=== PATIENT | male | born 1995 | race Caucasian/White ===

== ENCOUNTER 2018-01-28 10:23 | Emergency (ER) | payer SELFPAY ==
[2018-01-28 10:33] VITALS: BP 141/88
--- NOTE | 2018-01-28 11:05 | ER Document Report ---
ED Medical Screen (RME) - General Chief Complaint: Chest Pain Stated Complaint: CHEST PAIN Time Seen by Provider: 01/28/18 11:01 Mode of Arrival: Ambulatory Information source: Patient Notes: This is a 22-year-old man with history of depression and dyslipidemia who presents to the emergency with feelings of anxiousness, headaches, chest pain, sweaty palms. Patient is originally from [place] and moved here with his girlfriend. He states that he is always been anxious and states it has been worse lately. He does smoke cigarettes (1 pack a day) and he does drink up to 12 Mountain Dew's a day. Medications: Medicine for dyslipidemia. He does state he was on an antidepressant for 1 week and took himself off after leaving [place]. Social: Cigarettes 1 pack per day Mountain Dew: At least 12 a day Family history: 2 brothers, 2 sisters: Good health. No early coronary artery disease or early CVA. No VTE. Patient does state that he plans on moving back to [place] in 1 month with his girlfriend. He has not seen a primary care doctor since coming to this area. TRAVEL OUTSIDE OF THE U[place] IN LAST 30 DAYS: No - HPI Onset: Last week Onset/Duration: Gradual Quality of pain: Sharp Severity: Moderate Pain Level: 2 Associated Symptoms: Chest pain, Dizzy/lightheaded, Weakness - Then realized. denies: Nausea, Shortness of breath Exacerbated by: Denies Relieved by: Denies Similar symptoms previously: Yes Recently seen / treated by doctor: Yes - Related Data Smoking: Cigarettes Frequency of alcohol use: None Drug Abuse: None Allergies/Adverse Reactions: No Known Allergies Allergy (Verified 01/28/18 10:24) Past Medical History - General Information source: Patient - Social History Cigarette use (# per day): Yes - 1 pack per day Chew tobacco use (# tins/day): No Frequency of alcohol use: None Drug Abuse: None Lives with: Spouse/Significant other Family history: None - Past Medical History Cardiac Medical History: Reports: Hx Hypercholesterolemia Renal/ Medical History: Denies: Hx Peritoneal Dialysis Psychiatric Medical History: Reports: Hx Depression Surgical Hx: Negative Review of Systems - Review of Systems Constitutional: denies: Chills, Fever EENT: No symptoms reported Cardiovascular: Lightheaded Respiratory: denies: Short of breath, Wheezing Gastrointestinal: No symptoms reported Genitourinary: No symptoms reported Male Genitourinary: No symptoms reported Musculoskeletal: No symptoms reported Skin: No symptoms reported Hematologic/Lymphatic: No symptoms reported Neurological/Psychological: Headaches - Patient has a long history of headaches. No significant change Physical Exam - Vital signs Vitals: Temp Pulse Resp BP Pulse Ox 98.0 F 101 H 20 141/88 H 98 01/28/18 10:31 01/28/18 10:31 01/28/18 10:31 01/28/18 10:31 01/28/18 10:31 Notes: Physical exam: GENERAL: A 22-year-old man, alert and oriented 3, no acute distress. HEAD: Atraumatic, normocephalic. EYES: Pupils equal round and reactive to light, extraocular movements intact, sclera anicteric, conjunctiva are normal. ENT: TMs normal, nares patent, oropharynx clear without exudates. No neck adenopathy. Moist mucous membranes. NECK: Normal range of motion, supple without obvious mass or JVD. LUNGS: Breath sounds clear to auscultation bilaterally and equal. No wheezes rales or rhonchi. HEART: Regular rate and rhythm without murmurs, rubs or gallops. ABDOMEN: Soft, normoactive bowel sounds. No tenderness to palpation. No guarding, no rebound. No masses appreciated. EXTREMITIES: Normal range of motion, no pitting or edema. No clubbing or cyanosis. NEUROLOGICAL: Cranial nerves II through XII grossly intact. Normal speech, motor 5/5, sensory grossly intact, cerebellar (finger to nose) excellent, reflexes are symmetrical, Romberg negative. Patient's gait is normal. PSYCH: Normal mood, normal affect. SKIN: Warm, Dry, normal turgor, no rashes or lesions noted. Course - Re-evaluation Re-evalutation: 01/28/18 11:11 I had a long conversation with the patient. Ultimately, I think his caffeine intake and nicotine intake are contributing to feelings of anxiousness and lightheadedness. He reports not drinking much fluid at all. I have strongly encouraged him to cut down on the smoking and to slowly cut down on the caffeine intake and to drink more fluids. I have referred him to the [facility] and encouraged him to make an appointment on Tuesday. He thinks he is only going to be in the area for 1 more month but I have advised him to schedule the appointment just in case he is in the area longer. Additionally, if he is leaving at the end of the month, I have advised him to follow-up with a primary care doctor when back in [place] as soon as he gets home. He has requested antianxiety medicines. I am hesitant to start him on an antidepressant given the fact that he was noncompliant with the antidepressant his last doctor had him on. I have discussed with him the problems with medicines like benzodiazepine for the abuse potential so we have held off on those medicines. - Vital Signs Vital signs: Temp Pulse Resp BP Pulse Ox 98.0 F 101 H 20 141/88 H 98 01/28/18 10:31 01/28/18 10:31 01/28/18 10:31 01/28/18 10:31 01/28/18 10:31 - EKG Interpretation by Me Rate: Normal Rhythm: NSR - EKG shows sinus tachycardia with a ventricular rate of 101, no acute ST-T wave changes Doctor's Discharge - Discharge Clinical Impression: Chest wall pain Condition: Stable Disposition: HOME, SELF-CARE Instructions: Chest Wall Pain ([facility]) Additional Instructions: As we discussed, I would like you to start cutting down on his smoking. I would like you to discuss this with the girlfriend so that may be you can do it together. Ultimately, if you can cut out the cigarettes, this will greatly contribute to her overall health. Keep in mind, that nicotine is a stimulant and will contribute to feelings of anxiousness. Also, you are drinking too much Mountain Dew (which has a lot of caffeine in it and will contribute to anxiousness, palpitations, feeling lightheaded). I would like you to cut down slowly on the Mountain Dew. Cut down on one Mountain Dew a week and make sure you drink a couple glasses of water with each meal. This may help the feelings of lightheadedness by making you better hydrated. Your EKG looked good today. Your neurologic exam was very normal. I would like you to follow-up with her primary care physician when you are back in [place]. In the meantime, call the [facility] for follow-up appointment: Call Tuesday and schedule the appointment. This way, if you are still in town, you have an appointment set up. Return to the emergency room for any worsening pain, worsening lightheadedness, any concerns or getting worse, worsening anxiousness, or any concerns he may want to hurt yourself.
--- NOTE | 2018-01-29 03:01 | EKG REPORT ---
SEVERITY:- OTHERWISE NORMAL ECG - SINUS TACHYCARDIA : Confirmed by: Genevieve Orosco MD 29-Jan-2018 03:01:01
== END 2018-01-28 11:09 | disposition home or self-care (01) ==
LOC: ER 10:23
DX: R07.89 Other chest pain (principal); F41.9 Anxiety disorder, unspecified; R51 Headache; R42 Dizziness and giddiness; R53.1 Weakness; R00.0 Tachycardia, unspecified; F17.210 Nicotine dependence, cigarettes, uncomplicated; E78.5 Hyperlipidemia, unspecified; Z79.899 Other long term (current) drug therapy
CPT/HCPCS: 93005; 93010; 99284

== ENCOUNTER 2018-01-29 09:59 | Emergency (ER) | payer SELFPAY ==
[2018-01-29 10:03] VITALS: BP 146/85
--- NOTE | 2018-01-29 10:11 | ER Document Report ---
ED Medical Screen (RME) - General Chief Complaint: Psych Problem Stated Complaint: PSYCH EVAL Time Seen by Provider: 01/29/18 10:11 Mode of Arrival: Ambulatory Information source: Patient Notes: This is a 22-year-old man with a history of anxiety who presents to the emergency room with worsening symptoms of anxiety, thoughts of depression and suicidal ideation. He does not have a specific plan but his symptoms have been getting worse. TRAVEL OUTSIDE OF THE [place] IN LAST 30 DAYS: No - Related Data Allergies/Adverse Reactions: No Known Allergies Allergy (Verified 01/29/18 09:59) Past Medical History - Social History Family history: None - Past Medical History Cardiac Medical History: Reports: Hx Hypercholesterolemia Renal/ Medical History: Denies: Hx Peritoneal Dialysis Psychiatric Medical History: Reports: Hx Depression Physical Exam - Vital signs Vitals: Temp Pulse Resp BP Pulse Ox 98.1 F 96 18 146/85 H 98 01/29/18 10:02 01/29/18 10:02 01/29/18 10:02 01/29/18 10:02 01/29/18 10:02 Course - Vital Signs Vital signs: Temp Pulse Resp BP Pulse Ox 98.1 F 96 18 146/85 H 98 01/29/18 10:02 01/29/18 10:02 01/29/18 10:02 01/29/18 10:02 01/29/18 10:02
--- NOTE | 2018-01-29 10:27 | ER Document Report ---
ED Psych Disorder / Suicide - General Chief Complaint: Psych Problem Stated Complaint: PSYCH EVAL Time Seen by Provider: 01/29/18 10:11 Mode of Arrival: Ambulatory Information source: Patient TRAVEL OUTSIDE OF THE [place] IN LAST 30 DAYS: No - HPI Patient complains to provider of: Suicidal ideation, Other - ANXIETY, N/V Onset: Other - 2 WEEKS, GRADUALLY INCREASING Onset was: Gradual Quality of pain: No pain Suicide Risk Factors: Depressed, Male Situational problems related to: Lost job Associated symptoms: Decreased appetite, Depressed, Unable to sleep Similar symptoms previously: No Recently seen / treated by doctor: Yes - YESTERDAY, [facility] E.D[facility] CHEST PAIN W/U NEG. - Related Data Allergies/Adverse Reactions: No Known Allergies Allergy (Verified 01/29/18 09:59) Past Medical History - General Information source: Patient - Social History Smoking Status: Current Every Day Smoker Cigarette use (# per day): Yes Chew tobacco use (# tins/day): No Frequency of alcohol use: None Drug Abuse: None Lives with: Family Family History: None Patient has suicidal ideation: Yes Patient has homicidal ideation: No - Past Medical History Cardiac Medical History: Reports: Hx Hypercholesterolemia Pulmonary Medical History: Reports: None EENT Medical History: Reports: None Neurological Medical History: Reports: None Endocrine Medical History: Reports: None Renal/ Medical History: Reports: None. Denies: Hx Peritoneal Dialysis Malignancy Medical History: Reports None GI Medical History: Reports: None Musculoskeletal Medical History: Reports None Psychiatric Medical History: Reports: Hx Depression Traumatic Medical History: Reports: None Past Surgical History: Reports: Hx Tonsillectomy Review of Systems - Review of Systems Constitutional: No symptoms reported EENT: No symptoms reported Cardiovascular: See HPI Respiratory: No symptoms reported Gastrointestinal: See HPI Genitourinary: No symptoms reported Musculoskeletal: No symptoms reported Skin: No symptoms reported Neurological/Psychological: See HPI, Depression, Anxiety Physical Exam - Vital signs Vitals: Temp Pulse Resp BP Pulse Ox 98.1 F 96 18 146/85 H 98 01/29/18 10:02 01/29/18 10:02 01/29/18 10:02 01/29/18 10:02 01/29/18 10:02 Interpretation: Hypertensive. No: Tachycardic, Tachypneic, Febrile - General General appearance: Appears well, Alert In distress: None - HEENT Head: Normocephalic Eyes: Normal Conjunctiva: Normal Ears: Normal Nasal: Normal Mouth/Lips: Normal Mucous membranes: Normal - Respiratory Respiratory status: No respiratory distress Breath sounds: Normal - Cardiovascular Rhythm: Regular Heart sounds: Normal auscultation Murmur: No - Abdominal Inspection: Normal Bowel sounds: Normal - Back Back: Normal - Extremities General upper extremity: Normal inspection General lower extremity: Normal inspection - Neurological Neuro grossly intact: Yes Cognition: Normal Orientation: AAOx4 - Psychological Associated symptoms: Anxious - Skin Skin Temperature: Warm Skin Moisture: Dry Skin Color: Normal Skin Turgor: Elastic Course - Vital Signs Vital signs: Temp Pulse Resp BP Pulse Ox 98.1 F 96 18 146/85 H 98 01/29/18 10:02 01/29/18 10:02 01/29/18 10:02 01/29/18 10:02 01/29/18 10:02 - Laboratory Result Diagrams: 01/29/18 10:40 01/29/18 10:40 Laboratory results interpreted by me: 01/29/18 01/29/18 01/29/18 10:40 10:40 11:15 WBC 13.4 H Seg Neutrophils % 85.2 H Lymphocytes % 9.5 L Absolute Neutrophils 11.4 H Calcium 10.5 H Total Protein 8.7 H Albumin 5.1 H Urine Urobilinogen 2.0 H Salicylates < 1.0 L Acetaminophen < 10 L - EKG Interpretation by Me EKG shows normal: Sinus rhythm, Jackson, Intervals, QRS Complexes, ST-T Waves Rate: Normal Rhythm: NSR Discharge - Discharge Clinical Impression: Anxiety Condition: Good Disposition: HOME, SELF-CARE Additional Instructions: You were seen in the ED & evaluated by the Medical and Behavioral Health Teams for suicidal ideation and anxiety and determined to be appropriate for discharge at this time. You are encouraged to contact your medical provider regarding any concerns that you have with the stomach problems that you are experiencing. Resource information given on the [facility] to assist patients who do not have health insurance. Medication Recommendations: Buspar 5mg every morning Buspar 10mg at bedtime 7day prescriptions DEPRESSION: Your evaluation reveals that you have depression. While symptoms may be vague, they often include disturbance of sleep, fatigue, loss of appetite, and general loss of interest in life. While depression may be a side effect of drugs, or a reaction to a major change in your life, many cases have no known cause. If depression is acute, and related to a major loss in your life, you can expect it to clear completely with time. If you have been depressed a long time , are prone to repeated bouts of depression or low mood, or have been thinking of suicide, get help. Depression can be treated with anti-depressant medication and counselling. Long-term depression will often take a few weeks to clear, even with appropriate medication. Follow-up care is important. SUICIDAL IDEATION: Suicidal ideation is a common medical term for thoughts about suicide, which may be as detailed as a formulated plan, without the suicidal act itself. Although most people who undergo suicidal ideation do not commit suicide, some go on to make suicide attempts. The range of suicidal ideation varies greatly from fleeting to detailed planning, role playing, and unsuccessful attempts. While thoughts about suicide are common, most people do not carry out serious actions to commit suicide. Based upon your evaluation and discussion with you, we do not believe you are currently at risk to act upon your thoughts of suicide. You have agreed to return to the Emergency Department, at any time , if you feel inclined to act upon your suicidal thoughts. FOLLOW-UP CARE: If you have been referred to a physician for follow-up care, call the physician s office for an appointment as you were instructed or within the next two days. If you experience worsening or a significant change in your symptoms, notify the physician immediately or return to the Emergency Department at any time for re-evaluation.
[2018-01-29] MEDS ORDERED: ONDANSETRON 4 MG TAB.RAPDIS PO ONE (10:38)
[2018-01-29] MEDS ORDERED: BUSPIRONE HCL 10 MG TABLET PO ONE (10:50)
[2018-01-29 11:03] LABS: ABSOLUTE LYMPHOCYTES (AUTO) 1.3 10^3/uL (0.5-4.7); ABSOLUTE MONOCYTES (AUTO) 0.7 10^3/uL (0.1-1.4); ABSOLUTE NEUT (AUTO) 11.4 10^3/uL (1.7-8.2); BASOPHILS % (AUTO) 0.2 % (0-2); EOSINOPHILS % (AUTO) 0.1 % (0-6); HEMATOCRIT 44.7 % (37.9-51.0); HEMOGLOBIN 15.8 g/dL (13.5-17.0); LYMPHOCYTES % (AUTO) 9.5 % (13-45); MEAN CORPUSCULAR HEMOGLOBIN 31.5 pg (27.0-33.4); MEAN CORPUSCULAR HGB CONC 35.3 g/dL (32.0-36.0); MEAN CORPUSCULAR VOLUME 89 fl (80-97); PLATELET COUNT 229 10^3/uL (150-450); RED CELL DISTRIBUTION WIDTH 13.2 % (11.5-14.0); SEGMENTED NEUTROPHILS % (AUTO) 85.2 % (42-78); TOTAL CELLS COUNTED % (AUTO) 100 %; WHITE BLOOD COUNT 13.4 10^3/uL (4.0-10.5)
[2018-01-29 11:17] LABS: ALANINE AMINOTRANSFERASE 57 U/L (21-72); ALBUMIN 5.1 g/dL (3.5-5.0); ALKALINE PHOSPHATASE 87 U/L (38-126); ANION GAP 18 (5-19); ASPARTATE AMINO TRANSFERASE 30 U/L (17-59); BILIRUBIN,DIRECT 0.3 mg/dL (0.0-0.4); BILIRUBIN,TOTAL 1.3 mg/dL (0.2-1.3); BLOOD UREA NITROGEN 15 mg/dL (7-20); CALCIUM 10.5 mg/dL (8.4-10.2); CARBON DIOXIDE 23 mmol/L (22-30); CHLORIDE 102 mmol/L (98-107); GLUCOSE 110 mg/dL (75-110); POTASSIUM 4.6 mmol/L (3.6-5.0); SODIUM 142.5 mmol/L (137-145); TOTAL PROTEIN 8.7 g/dL (6.3-8.2)
[2018-01-29 11:21] LABS: ACETAMINOPHEN < 10 ug/mL (10-30); ALCOHOL < 10 mg/dL (NONE DETECTED); SALICYLATE < 1.0 mg/dL (2.0-20.0)
[2018-01-29 12:29] LABS: APPEARANCE,URINE CLEAR; BILIRUBIN,URINE NEGATIVE (NEGATIVE); COLOR,URINE YELLOW; GLUCOSE, URINE NEGATIVE (NEGATIVE); KETONES,URINE NEGATIVE (NEGATIVE); LEUKOCYTE ESTERASE,URINE NEGATIVE (NEGATIVE); NITRITE,URINE NEGATIVE (NEGATIVE); PROTEIN,URINE NEGATIVE (NEGATIVE); URINE SPECIFIC GRAVITY 1.013
[2018-01-29 12:43] LABS: URINE AMPHETAMINES SCREEN NEGATIVE; URINE BENZODIAZEPINES SCREEN NEGATIVE; URINE COCAINE SCREEN NEGATIVE; URINE MARIJUANA (THC) SCREEN NEGATIVE; URINE METHADONE SCREEN NEGATIVE; URINE PHENCYCLIDINE SCREEN NEGATIVE
[2018-01-29 13:00] LABS: URINE BARBITURATES SCREEN NEGATIVE
--- NOTE | 2018-01-29 16:54 | PSYCHOLOGICAL NOTE ---
Psych Note - Psych Note Psych Note: Pscyh Note: Patient drove himself to the ED this morning reporting suicidal ideation and anxiety. Patient stated that he did tell the DrDayami that he was "depressed" but denies that he ever thought about killing himself. Patient did not have a plan or any weapons. Patient did admit that he has trouble sleeping but that insomnia runs in his family. Patient moved here in 2018 with his GF and their three children to be close to SANDRA's grandmother. Patient stated that he misses his family and actively making plans to return to [place]. No prior attempts, no substance abuse. Did take Zyquil, an over the counter sleep aid about 2 nights ago. 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 Patient has not accessed any [facility] Providers[facility] and had a primary doctor in [place]. Patient is taking medication for high cholesterol. Patient states that he did not get a good night sleep last night and when he woke up this morning he decided to go to the ED after having suicidal thoughts. When asked to clarify what suicidal thoughts, he shrugged his shoulders and said "I don't know". Says that was the first time "it came to his mind". GF confirms that they are trying to move back to [place] when they get someone to take over the lease. GF states patient has been having stomach issues and can no longer drink sodas. GF states that he also has been having nosebleeds and sometime experience being light headed so that is why he is on cholesterol medicine. The only other medication that she has seen him take is Tylenol for headache. They have been together for 6 years, have 3 kids and happy. Diagnosis: 300.02 (F41.1) Generalized Anxiety Disorder Impression/Plan: Patient was alert, sitting upright when clinician walked into the room. Patient made good eye contact and engaged in the consultation with no resistance. Patient was forthcoming with information but could not articulate any feelings regarding suicidal ideation. Mood was stable and patient appeared to be relaxed. Patient was concerned about his nausea and asked for medication. Patient stated that he had been getting upset stomach quite often.
--- NOTE | 2018-01-29 18:29 | EKG REPORT ---
SEVERITY:- NORMAL ECG - SINUS RHYTHM : Confirmed by: Genevieve Orosco MD 29-Jan-2018 18:29:22
== END 2018-01-29 17:56 | disposition home or self-care (01) ==
LOC: ER 09:59
DX: F41.1 Generalized anxiety disorder (principal); F32.9 Major depressive disorder, single episode, unspecified; R45.851 Suicidal ideations; R11.2 Nausea with vomiting, unspecified; R63.0 Anorexia; F17.210 Nicotine dependence, cigarettes, uncomplicated
CPT/HCPCS: 93005; 99285; 36415; 80307 ×4; 85025; 80053; 81001; 93010; S0119